=== PATIENT | male | born 1985 | race Hispanic/Latino ===

== ENCOUNTER 2018-09-08 13:28 | Emergency (ER) | payer SELFPAY ==
--- NOTE | 2018-09-08 15:22 | RAD ---
RIGHT RIBS 4 VIEWS: Date: 09/08/18 INDICATION: Fall with injury to right chest. FINDINGS: Lungs appear clear. No evidence of right rib fracture identified. No other rib lesions seen. IMPRESSION: No acute findings. POS: FINESSE
== END 2018-09-08 15:10 | disposition home or self-care (01) ==
LOC: SCSER 13:28
DX: S20.211A Contusion of right front wall of thorax, initial encounter (principal); W17.89XA Other fall from one level to another, initial encounter